=== PATIENT | male | born 1945 | race Caucasian/White ===

== ENCOUNTER 2021-07-02 10:38 | Emergency (ER) | payer MEDICARE, SELFPAY ==
--- NOTE | ~2021-07-02 | XR_ITS ---
EXAMINATION: XR ankle LT min 3V EXAM DATE: 07/02/2021 11:03 INDICATION: Inversion injury. TECHNIQUE: Left ankle frontal, lateral and oblique projections obtained and reviewed. There is no pr ior study for comparison. FINDINGS: The left ankle mortise appears intact. There is acute closed posttraumatic nondisplaced left distal fibular fracture extending into the distal tibiofibular syndesmosis. This finding has bee n indicated, marked on the examination for review, clinical correlation. No other acute fracture sumit ntified. Sequela from prior malleolar avulsion injuries. IMPRESSION: Acute left distal fibular metaphyseal fracture into syndesmosis. Reviewed, dictated and finalized at location B. R SUPPORT TECHNICIAN
[2021-07-02 10:50] VITALS: BP 145/101; PULSE 80; RESP 16; TEMP 36.6; O2SAT 97
--- NOTE | 2021-07-02 10:59 | ED.LOWEXIN ---
HPI - Extremity Injury (Lower) General Chief Complaint: Extremity Injury, Lower Stated Complaint: left Ankle injury Time Seen by Provider: 07/02/21 11:07 Source: patient Mode of arrival: ambulatory Limitations: no limitations History of Present Illness HPI Narrative: 75-year-old male presented for complaint of left ankle swelling after injury 11 days ago. States he slipped on black ice and twisted the ankle and landed on the ground. He states he did not hit his head or lose consciousness. Denies any other pain. He has been using a device that circulates cold water around the ankle, taking Aleve and resting it as much as he can. He states he has no pain at this time and swelling is decreasing. No bruising. Denies numbness, tingling, or weakness. He is walking on it. Related Data Home Medications Medication Instructions Recorded Confirmed naproxen sodium [Aleve] 440 mg PO DAILY 07/02/21 07/02/21 Allergies Allergy/AdvReac Type Severity Reaction Status Date / Time No Known Allergies Allergy Verified 07/02/21 11:08 Review of Systems Review of Systems: CONSTITUTIONAL: Denies body aches, fever, chills EYES: Denies visual changes ENT: Denies rhinorrhea, congestion CARDIOVASCULAR: Denies chest pain, palpitations, or edema. RESPIRATORY: Denies cough or dyspnea. GASTROINTESTINAL: Denies abdominal pain, nausea, vomiting, or diarrhea. SKIN: Denies rash, itching, or wounds. MUSCULOSKELETAL: Endorses left ankle swelling NEUROLOGIC: Denies headache, numbness, tingling, or weakness. PSYCH: Denies depression or anxiety. All systems reviewed & are unremarkable except as noted in HPI and below PMFSH Comments At time of signature, I have reviewed and agree with nursing past medical, surgical, social and family history unless otherwise noted. Please see nursing chart for further information. There is no relevant family history pertinent to the presenting complaint Exam Narrative: GENERAL: Well-appearing, well-nourished, and in no acute distress. HEAD: Normocephalic, atraumatic. EYES: PERRLA, conjunctivae clear NECK: Supple. CHEST: Speaks in full sentences. No respiratory distress. HEART: Regular rate and rhythm. Normal and equal peripheral pulses. EXTREMITIES: Left ankle has normal strength and sensation, normal range of motion with flexion/extension/rotation, denies pain with movement. Moderate edema to medial and lateral aspects of the ankle approximately 2+, no ecchymosis or point tenderness. No open wounds, skin tenting, or obvious deformity; alignment normal, pulse palpable and equal bilaterally, skin warm, dry, pink. Capillary refill less than 3 seconds. SKIN: Warm, dry, no rash. NEURO: Alert and oriented x3. PSYCH: Normal mood and affect Course Course Emergency Course: Patient is aware of diagnosis, xray reviewed, pt understands and agrees to treatment plan. Anticipatory guidance given. Patient agrees to follow-up as directed and is aware of reasons to seek care at the emergency department. Portions of this record may have been created with voice recognition software Level of Care: Express Care Visit Vital Signs Vital signs: Vital Signs Temperature 98 F 07/02/21 10:50 Pulse Rate 80 07/02/21 10:50 Respiratory Rate 16 07/02/21 10:50 Blood Pressure 145/101 H 07/02/21 10:50 Pulse Oximetry 97 07/02/21 10:50 Temperature 98 F 07/02/21 11:08 Pulse Rate 80 07/02/21 11:08 Respiratory Rate 16 07/02/21 11:08 Blood Pressure 145/101 H 07/02/21 11:08 Pulse Oximetry 97 07/02/21 11:08 Reviewed Procedures Orthopedic Splinting/Casting Injury #1: Splinting/Casting Date: 07/02/21 Side: left Lower Extremity Injury Location: ankle OCL: stirrup Pre-Procedure Neuro Vascular Exam: normal Post-Procedure Neuro Vascular Exam: normal Other Orthopedic Equipment: crutches Additional Comments: applied per tech, pt tolerated well MDM - Extrem
[2021-07-02 11:08] VITALS: BP 145/101; PULSE 80; RESP 16; TEMP 36.6; O2SAT 97
--- NOTE | 2021-07-02 12:31 | PC.NURSE ---
PT DECLINED ICE AND WHEELCHAIR TO RADIOLOGY
== END 2021-07-02 12:07 | disposition home or self-care (01) ==
PROVIDERS: Emergency Provider Nurse Practitioner Family
DX: S82.832A Other fracture of upper and lower end of left fibula, initial encounter for closed fracture (principal); W00.0XXA Fall on same level due to ice and snow, initial encounter; E78.00 Pure hypercholesterolemia, unspecified; I10 Essential (primary) hypertension
CPT/HCPCS: 29515; 73610; 99214; G0463

== ENCOUNTER 2023-04-21 09:03 | Emergency (ER) | payer MEDICARE, SELFPAY ==
--- NOTE | 2023-04-21 09:11 | ED.GENADULT ---
HPI - General Adult General Chief complaint: Upper Respiratory Infection Stated complaint: Cough Time Seen by Provider: 04/21/23 09:27 Source: patient, RN notes reviewed and old records reviewed Mode of arrival: ambulatory Limitations: no limitations History of Present Illness HPI narrative: 77-year-old male presents to [facility] with complaint productive brown cough, slight sinus congestion, slight sore throat, fatigue and general malaise that started 3 days ago. Patient taking [id number] medications with no relief. Patient denies weakness, dizziness, chest pain, shortness of breath. MD complaint: Cough Onset (ago): day(s) (3) Related Data Home Medications Medication Instructions Recorded Confirmed naproxen sodium 220 mg tablet 440 mg PO DAILY 07/02/21 07/28/21 (Aleve) chlorthalidone 25 mg tablet 25 mg PO DAILY 07/05/21 07/28/21 rosuvastatin 20 mg tablet 20 mg PO DAILY 07/05/21 07/28/21 Allergies Allergy/AdvReac Type Severity Reaction Status Date / Time No Known Allergies Allergy Verified 07/28/21 15:27 Review of Systems Constitutional: Constitutional: Reports no additional constitutional complaints, Reports body ache(s), Denies chills, Reports fatigue, Denies fever(s) and Denies headache(s) Eyes: Eyes: Reports no additional eye complaints and Denies blurry vision ENT: Reports system reviewed and no additional complaints, except as documented, Denies vertigo, Denies dizziness, Denies ear discharge, Denies otalgia, Denies facial pain, Denies headache(s), Reports nasal congestion, Denies nasal discharge, Denies sinus pain, Denies sinus pressure and Reports sore throat Cardiovascular: Cardiovascular: Reports no additional cardiovascular complaints, Denies chest pain, Denies chest pain at rest, Denies rapid heart rate and Denies dyspnea Respiratory: Respiratory: Reports no additional respiratory complaints, Denies chest congestion, Reports cough, Denies pain on inspiration, Denies pain with cough and Denies dyspnea Gastrointestinal: Gastrointestinal: Denies abdominal pain, Denies diarrhea, Denies nausea and Denies vomiting Integumentary/Breasts: Skin/Breast: Denies rash Neurologic: Reports system reviewed and no additional complaints, except as documented, Denies vertigo, Denies dizziness and Denies headache(s) Endocrine: Endocrine: Denies fatigue PMFSH Past Medical History Medical History Left fibular fracture (~06/21/21) Comments At the time of my signature, I reviewed and agree with the nursing past medical, surgical, social, and family history. There is no relevant family history pertinent to the patient complaint. Exam Const: General: cooperative, healthy appearing, no acute distress and well nourished Nutritional Appearance: well nourished Orientation/consciousness: patient oriented x3 Limitations: no limitations HENMT: Head: normal to inspection and normocephalic Ears: external ears normal, TM's normal bilaterally, mastoids normal and Abnormal EAC present Face/Nose/Sinus: normal facial exam Face and sinus: normal facial exam Mouth: Yes Normal oral and palatal mucosa present, Yes oropharynx normal and Yes moist mucous membranes Throat: tonsils normal, uvula midline, posterior oropharynx abnormal erythema and no uvular edema Eyes: General: appearance normal, both eyes and all related structures Sclera: sclerae normal Pupils: Equal, round and reactive pupils present Resp: Effort & Inspection: normal respiratory effort, able to speak in complete sentences, no audible wheezes, no cough, no respiratory distress and no retractions Auscultation: clear to auscultation bilaterally, no crackles, no rales, no rhonchi and no wheezes Cardio: Rate: regular rate Rhythm: regular rhythm Skin: General skin exam: normal color and no rashes or lesions noted Neuro: General: patient oriented x3 Cranial nerves: Yes Equal, round and reactive pupils
[2023-04-21 09:12] VITALS: BP 139/90; PULSE 73; RESP 16; TEMP 36.5; O2SAT 96
== END 2023-04-21 09:49 | disposition home or self-care (01) ==
PROVIDERS: Emergency Provider Registered Nurse
DX: J20.9 Acute bronchitis, unspecified (principal); Z20.822 Contact with and (suspected) exposure to COVID-19
CPT/HCPCS: 87426; 87804; 99213; C9803; G0463